=== PATIENT | male | born 1955 | race Two or more races ===

== ENCOUNTER 2018-08-14 08:01 | Outpatient (CLI) | payer OTHER ==
[~2018-08-14 08:01] MED LIST: COREG CR20 MG; COZAAR50 MG
== END 2018-08-14 08:12 | disposition home or self-care (01) ==
LOC: NUCLEAR 08:01
DX: I10 Essential (primary) hypertension (principal); E78.4 Other hyperlipidemia; I25.10 Atherosclerotic heart disease of native coronary artery without angina pectoris
CPT/HCPCS: J0153; A9500; 93017; 78452